=== PATIENT | male | born 1950 | race Caucasian/White ===

== ENCOUNTER 2018-09-16 22:08 | Emergency (ER) | payer MEDICARE, BC ==
[2018-09-16] MEDS ORDERED: Lidocaine 1% with EPINEPHrine 1:100,000 20 ML MDV INJECT ONE (22:36)
[2018-09-16] MEDS ORDERED: Cephalexin 500 MG Cap PO ONE (22:55)
--- NOTE | 2018-09-16 23:02 | EDM.PDOC ---
ED HPI GENERAL MEDICAL PROBLEM - General Chief Complaint: Skin Complaint Stated Complaint: SORE ON LT LEG Time Seen by Provider: 09/16/18 22:30 Source of Information: Reports: Patient, Family History Limitations: Reports: No Limitations - History of Present Illness INITIAL COMMENTS - FREE TEXT/NARRATIVE: c/o swelling on his L thigh here with son swell x 1w, more pain, no d/c, no f/c/d saw PCP in past wk who advised watchful waiting not had abscesses in past gets PT for bursitis of L hip - Related Data Allergies Allergy/AdvReac Type Severity Reaction Status Date / Time No Known Allergies Allergy Verified 09/16/18 22:23 Home Meds: Home Meds Citalopram [Citalopram HBr] 40 mg PO DAILY 09/16/18 [History] Donepezil [Aricept] 5 mg PO BEDTIME 09/16/18 [History] Lisinopril 20 mg PO DAILY 09/16/18 [History] Metoprolol Succinate 50 mg PO DAILY 09/16/18 [History] SitaGLIPtin [Januvia] 50 mg PO DAILY 09/16/18 [History] cephALEXin [Keflex] 500 mg PO TID #21 cap 09/16/18 [Rx] ED ROS GENERAL - Review of Systems Review Of Systems: See Below Constitutional: Reports: No Symptoms HEENT: Reports: No Symptoms Respiratory: Reports: No Symptoms Cardiovascular: Reports: No Symptoms Endocrine: Reports: No Symptoms GI/Abdominal: Reports: No Symptoms : Reports: No Symptoms Musculoskeletal: Reports: No Symptoms Skin: Reports: Lumps Neurological: Reports: No Symptoms Psychiatric: Reports: No Symptoms Hematologic/Lymphatic: Reports: No Symptoms Immunologic: Reports: No Symptoms ED EXAM, SKIN/RASH Exam: See Below Exam Limited By: No Limitations General Appearance: Alert, WD/WN, No Apparent Distress Neck: Normal Inspection Respiratory/Chest: No Respiratory Distress Cardiovascular: Regular Rate, Rhythm Skin: Other (L thigh with indurated area of 5 x 4 cm, slight red, firm, mild tender, no warm, cleaned with alc prep x 9, #30 needle with 1% lido with epi local, #11 blade for a 1.5 cm incision, depth of 8 mm, into fat, not muscle seen , several drops of pus at base of abscess, collected on culturette and sent to lab, cyst proper not observed altho appearance was fairly typical) Course - Orders/Labs/Meds Orders: Active Orders 24 hr Category Date Time Status CULTURE ROUTINE + SMEAR [RM] Stat Lab 09/16/18 22:55 Ordered cephALEXin [Keflex] Med 09/16/18 22:55 Once 500 mg PO ONETIME ONE Meds: Medications Discontinued Medications Generic Name Dose Route Start Last Admin Trade Name Mini PRN Reason Stop Dose Admin Lidocaine/Epinephrine 20 ml 09/16/18 22:36 Xylocaine 1% With Epinephrine 1:100,000 INJECT 09/16/18 22:37 ONETIME ONE - Re-Assessments/Exams Free Text/Narrative Re-Assessment/Exam: 09/16/18 23:04 may be simple abscess, infections sebaceous cyst more likely Departure - Departure Time of Disposition: 22:57 Disposition: Home, Self-Care 01 Condition: Good Clinical Impression: Infected sebaceous cyst - Discharge Information *PRESCRIPTION DRUG MONITORING PROGRAM REVIEWED*: No *COPY OF PRESCRIPTION DRUG MONITORING REPORT IN PATIENT JOSE: No Prescriptions: cephALEXin [Keflex] 500 mg PO TID #21 cap Instructions: Epidermal Cyst Referrals: Mikey Sanches PA [Primary Care Provider] - Additional Instructions: For infection, take cephalexin 500 mg 1 tab 3 times a day for 7 days. Change dressing daily. May shower, may get wet. For the next 3 days, separate the skin edges by pulling them apart with your fingers once a day in the shower. See your doctor in 5 days. Return to ED if you have more swelling, more pain, more redness, develop a fever or are feeling worse. - My Orders Last 24 Hours: My Active Orders 09/16/18 22:55 CULTURE ROUTINE + SMEAR [RM] Stat cephALEXin [Keflex] 500 mg PO ONETIME ONE - Assessment/Plan Last 24 Hours: My Active Orders 09/16/18 22:55 CULTURE ROUTINE + SMEAR [RM] Stat cephALEXin [Keflex] 500 mg PO ONETIME ONE
== END 2018-09-16 23:10 | disposition home or self-care (01) ==
LOC: FB.ED 22:08
DX: L72.3 Sebaceous cyst (principal)
CPT/HCPCS: 10060; 87070; 87077; 87186; 87205; 99282; 99283; A9270

== ENCOUNTER 2019-12-12 12:41 | Emergency (ER) | payer MEDICARE, BC ==
[2019-12-12] MEDS ORDERED: Cephalexin 500 MG Cap PO ONE (12:42)
--- NOTE | 2019-12-12 13:10 | EDM.PDOC ---
ED HPI GENERAL MEDICAL PROBLEM - General Chief Complaint: ENT Problem Stated Complaint: EAR INFECTION?? Time Seen by Provider: 12/12/19 13:00 Source of Information: Reports: Patient History Limitations: Reports: No Limitations - History of Present Illness INITIAL COMMENTS - FREE TEXT/NARRATIVE: Patient presented to the ED because left facial redness and swelling. He was diagnosed with facial cellulitis and has been taki doxycycline 100 mg BID and according to him it doesn't seem to help although he has just been taking it x 2 days. There is no associated fever/chills. Left Ear Pain Score (Numeric/FACES): 4 - Related Data Allergies Allergy/AdvReac Type Severity Reaction Status Date / Time No Known Allergies Allergy Verified 09/16/18 22:23 Home Meds: Home Meds Citalopram [Citalopram HBr] 40 mg PO DAILY 09/16/18 [History] Donepezil [Aricept] 5 mg PO BEDTIME 09/16/18 [History] Lisinopril 20 mg PO DAILY 09/16/18 [History] Metoprolol Succinate 50 mg PO DAILY 09/16/18 [History] SitaGLIPtin [Januvia] 50 mg PO DAILY 09/16/18 [History] cephALEXin [Keflex] 500 mg PO TID #21 cap 09/16/18 [Rx] Rivaroxaban [Xarelto] 20 mg PO DAILY 12/12/19 [History] Past Medical History Gastrointestinal History: Reports: Other (See Below) Other Gastrointestinal History: gastric bypass Endocrine/Metabolic History: Reports: Diabetes, Type II Social & Family History - Family History Family Medical History: Noncontributory - Tobacco Use Smoking Status *Q: Never Smoker Second Hand Smoke Exposure: No - Caffeine Use Caffeine Use: Reports: Coffee - Recreational Drug Use Recreational Drug Use: No ED ROS GENERAL - Review of Systems Review Of Systems: See Below Constitutional: Reports: No Symptoms HEENT: Reports: No Symptoms Respiratory: Reports: No Symptoms Cardiovascular: Reports: No Symptoms Endocrine: Reports: No Symptoms GI/Abdominal: Reports: No Symptoms : Reports: No Symptoms Musculoskeletal: Reports: No Symptoms Skin: Reports: Erythema Neurological: Reports: No Symptoms Psychiatric: Reports: No Symptoms ED EXAM, SKIN/RASH Exam: See Below Exam Limited By: No Limitations General Appearance: Alert, No Apparent Distress Eye Exam: Bilateral Eye: PERRL Ears: Normal External Exam, Normal Canal Nose: Normal Inspection, Normal Mucosa Throat/Mouth: Normal Inspection, Normal Lips, Normal Teeth Head: Atraumatic, Normocephalic Neck: Normal Inspection, Supple, Non-Tender Respiratory/Chest: No Respiratory Distress, Lungs Clear, Normal Breath Sounds Cardiovascular: Normal Peripheral Pulses, Regular Rate, Rhythm, No Edema, No Gallop GI/Abdominal: Normal Bowel Sounds, Soft, Non-Tender, No Organomegaly Back Exam: Normal Inspection, Full Range of Motion Extremities: Normal Inspection, Normal Range of Motion Neurological: Alert, Oriented, CN II-XII Intact Psychiatric: Normal Affect Skin: Warm, Erythema Course - Vital Signs Text/Narrative:: add keflex 500 mg to Doxycycline 100 mg PO BID Last Recorded V/S: Last Vital Signs Temp 36.7 C 12/12/19 12:55 Pulse 58 L 12/12/19 12:55 Resp 18 12/12/19 12:55 BP 116/57 L 12/12/19 12:55 Pulse Ox Departure - Departure Time of Disposition: 13:10 Disposition: Home, Self-Care 01 Condition: Good Clinical Impression: Facial cellulitis - Discharge Information Instructions: Cellulitis, Adult Referrals: Mikey Sanches PA [Primary Care Provider] - Forms: ED Department Discharge Additional Instructions: Flease read discharge instructions on cellulitis Continue doxycycline 100 mg twice daily until gone Keflex 500 mg 3 times daily for 7 days Take you antibiotics with food because they can cause an upset stomach Follow up next week if symptoms worsens Sepsis Event Note - Evaluation Sepsis Screening Result: No Definite Risk - Focused Exam Vital Signs: Vital Signs Temp Pulse Resp BP 12/12/19 12:55 36.7 C 58 L 18 116/57 L Date Exam was Performed: 12/12/19 Time Exam was Performed: 14:11
== END 2019-12-12 13:28 | disposition home or self-care (01) ==
LOC: FB.ED 12:41
DX: L03.211 Cellulitis of face (principal); E11.9 Type 2 diabetes mellitus without complications; Z79.84 Long term (current) use of oral hypoglycemic drugs; Z79.899 Other long term (current) drug therapy; Z79.01 Long term (current) use of anticoagulants
CPT/HCPCS: 99283; A9270-GY

== ENCOUNTER 2019-12-20 11:29 | Emergency (ER) | payer MEDICARE, BC ==
--- NOTE | 2019-12-20 12:04 | EDM.PDOC ---
ED HPI GENERAL MEDICAL PROBLEM - General Chief Complaint: Allergic Reaction Stated Complaint: hives, itching Time Seen by Provider: 12/20/19 11:58 Source of Information: Reports: Patient History Limitations: Reports: No Limitations - History of Present Illness INITIAL COMMENTS - FREE TEXT/NARRATIVE: Patient developed hives @1 hour ago, now resolved after taking Benadryl. Just finished course of Invanz two days ago for left ear cellulitis, now taking an unknown oral antibiotic. He states he had been allergic to peanut butter several years ago, but not since gastric bypass. He ate a peanut butter cookie last night, but not today. He denies difficulty swallowing or shortness of breath. Onset: Today Duration: Hour(s): (1) Location: Reports: Generalized Severity: Mild - Related Data Allergies Allergy/AdvReac Type Severity Reaction Status Date / Time No Known Allergies Allergy Verified 09/16/18 22:23 Home Meds: Home Meds Citalopram [Citalopram HBr] 40 mg PO DAILY 09/16/18 [History] Donepezil [Aricept] 5 mg PO BEDTIME 09/16/18 [History] Lisinopril 20 mg PO DAILY 09/16/18 [History] Metoprolol Succinate 50 mg PO DAILY 09/16/18 [History] SitaGLIPtin [Januvia] 50 mg PO DAILY 09/16/18 [History] cephALEXin [Keflex] 500 mg PO TID #21 cap 09/16/18 [Rx] Rivaroxaban [Xarelto] 20 mg PO DAILY 12/12/19 [History] Past Medical History Cardiovascular History: Reports: Hypertension Respiratory History: Reports: None Gastrointestinal History: Reports: Other (See Below) Other Gastrointestinal History: gastric bypass Endocrine/Metabolic History: Reports: Diabetes, Type II - Past Surgical History HEENT Surgical History: Reports: None Respiratory Surgical History: Reports: None Male Surgical History: Reports: None Musculoskeletal Surgical History: Reports: None Oncologic Surgical History: Reports: None Social & Family History - Family History Family Medical History: Noncontributory - Tobacco Use Smoking Status *Q: Former Smoker Used Tobacco, but Quit: No - Caffeine Use Caffeine Use: Reports: Coffee ED ROS ALLERGIC REACTION - Review of Systems Review Of Systems: Comprehensive ROS is negative, except as noted in HPI. ED EXAM GENERAL NO PERIP PULSE - Physical Exam Exam: See Below Exam Limited By: No Limitations General Appearance: Alert, WD/WN, No Apparent Distress Throat/Mouth: No Airway Compromise Head: Atraumatic, Normocephalic Neck: Full Range of Motion Respiratory/Chest: No Respiratory Distress, Lungs Clear, Normal Breath Sounds Cardiovascular: Regular Rate, Rhythm, No Murmur Skin Exam: Warm, Dry, No Rash Course - Vital Signs Last Recorded V/S: Last Vital Signs Temp 36.6 C 12/20/19 11:40 Pulse 70 12/20/19 11:40 Resp 18 12/20/19 11:40 BP 125/59 L 12/20/19 11:40 Pulse Ox 97 12/20/19 11:40 Departure - Departure Time of Disposition: 12:03 Disposition: Home, Self-Care 01 Condition: Good Clinical Impression: Hives - Discharge Information *PRESCRIPTION DRUG MONITORING PROGRAM REVIEWED*: No *COPY OF PRESCRIPTION DRUG MONITORING REPORT IN PATIENT JOSE: Not Applicable Instructions: Hives Referrals: Mikey Sanches PA [Physician Instructor [facility]] - Additional Instructions: If symptoms recur, take Benadryl 50mg and call your doctor to see if he can switch your antibiotic. Return to the ER if symptoms recur and are not improved by Bendadryl. Sepsis Event Note - Focused Exam Vital Signs: Vital Signs Temp Pulse Resp BP Pulse Ox 12/20/19 11:40 36.6 C 70 18 125/59 L 97 Date Exam was Performed: 12/20/19 Time Exam was Performed: 11:58
== END 2019-12-20 12:15 | disposition home or self-care (01) ==
LOC: FB.ED 11:29
DX: L50.9 Urticaria, unspecified (principal); I10 Essential (primary) hypertension; E11.9 Type 2 diabetes mellitus without complications; Z87.891 Personal history of nicotine dependence; Z79.01 Long term (current) use of anticoagulants; Z79.899 Other long term (current) drug therapy
CPT/HCPCS: 99282; 99283

== ENCOUNTER 2021-06-05 06:51 | Day surgery (SDC) | payer BC, MEDICARE ==
[~2021-06-05 06:51] MED LIST: Sodium Chloride 0.9% 10 ML Syringe FLUSH PRN
[2021-06-05] MEDS ORDERED: Propofol 200 MG/20 ML SDV IV ONE (06:52)
[2021-06-05] MEDS ORDERED: Glycopyrrolate 0.2 MG/ML 5 ML MDV IV ONE (06:52)
[2021-06-05] MEDS ORDERED: Lidocaine 2% 5 ML SDV INJECT ONE (06:52)
[2021-06-05] MEDS: Lactated Ringers 1,000 ML IV SCH (08:04)
--- NOTE | 2021-06-05 08:15 | PCM.HPR ---
H & P Addendum review - H & P Addendum Review Date of Original H & P: 05/16/21 Date Reviewed: 06/05/21 Time Reviewed: 08:00 Patient was Examined: No Changes
--- NOTE | 2021-06-05 08:21 | PCM.OPNOTE ---
- General Post-Op/Procedure Note Date of Surgery/Procedure: 06/05/21 Operative Procedure(s): EGJ Findings: Normal, S/P gastric bypass Pre Op Diagnosis: Fe Def Anemia Post-Op Diagnosis: Same Anesthesia Technique: MAC Primary Surgeon: Fermin Freeman Complications: None Condition: Good
--- NOTE | 2021-06-05 14:21 | OR ---
DATE OF OPERATION: 06/05/2021 SURGEON: Fermin Freeman MD PREOPERATIVE DIAGNOSIS: Iron-deficiency anemia. POSTOPERATIVE DIAGNOSIS: Normal upper endoscopy. PROCEDURE: Esophagogastrojejunoscopy. ANESTHESIA: IV sedation. PROCEDURE IN DETAIL: The patient was brought to the procedure room, where he was placed on his left side and IV sedation administered. Oral bite- block was placed and the upper endoscope advanced into the esophagus under direct vision without difficulty. Vocal cords were viewed and were normal. The scope was advanced through a normal-appearing esophagus into the stomach pouch. The squamocolumnar junction is normal. Stomach pouch is normal. Gastrojejunostomy anastomosis was normal. I intubated the small afferent limb and the efferent limb for approximately 20 cm and all mucosal surfaces appeared normal. Retroflexion is normal. No source of anemia is identified. Air was removed and the scope withdrawn. The patient tolerated the procedure well and returned to recovery in stable condition. /[id number] ALEKSANDER/SUJATHA
== END 2021-06-05 09:13 | disposition home or self-care (01) ==
LOC: FB.SDS 06:51
PROVIDERS: ATTEND Surgery
DX: D50.9 Iron deficiency anemia, unspecified (principal); H10.32 Unspecified acute conjunctivitis, left eye; E11.9 Type 2 diabetes mellitus without complications; I10 Essential (primary) hypertension; I25.10 Atherosclerotic heart disease of native coronary artery without angina pectoris; K21.9 Gastro-esophageal reflux disease without esophagitis; Z79.4 Long term (current) use of insulin; Z87.891 Personal history of nicotine dependence; Z79.899 Other long term (current) drug therapy; Z88.8 Allergy status to other drugs, medicaments and biological substances; Z98.84 Bariatric surgery status
CPT/HCPCS: 00731-QZ; 82947; J2704; J3490; J7120

== ENCOUNTER 2023-03-30 15:48 | Emergency (ER) | payer MEDICARE ==
[2023-03-30] MEDS: methylPREDNISolone Sodium Succinate 125 MG/2 ML SDV IM ONE (16:18)
== END 2023-03-30 16:55 | disposition home or self-care (01) ==
LOC: FB.ED 15:48
DX: L23.7 Allergic contact dermatitis due to plants, except food (principal); I10 Essential (primary) hypertension; E11.9 Type 2 diabetes mellitus without complications; Z91.010 Allergy to peanuts; Z79.899 Other long term (current) drug therapy
CPT/HCPCS: 96372; 99282; J2930

== ENCOUNTER 2024-09-30 14:25 | Emergency (ER) | payer MEDICARE ==
[2024-09-30] MEDS: HYDROmorphone 2 MG/ML SDV IVPUSH ONE (15:13)
== END 2024-09-30 16:15 | disposition home or self-care (01) ==
LOC: FB.ED 14:25
DX: S42.201A Unspecified fracture of upper end of right humerus, initial encounter for closed fracture (principal); S09.90XA Unspecified injury of head, initial encounter; I10 Essential (primary) hypertension; E11.9 Type 2 diabetes mellitus without complications; Z95.5 Presence of coronary angioplasty implant and graft; Z79.01 Long term (current) use of anticoagulants; Z91.010 Allergy to peanuts; Z79.899 Other long term (current) drug therapy; Z90.49 Acquired absence of other specified parts of digestive tract; W22.8XXA Striking against or struck by other objects, initial encounter; Y93.89 Activity, other specified
CPT/HCPCS: 70450; 73060; 96374; 99284; J1171